=== PATIENT | female | born 1960 | race Caucasian/White ===

== ENCOUNTER → 2016-07-28 | Outpatient (REF) | payer OTHER | LOC: M LAB REF 17:09 | PROVIDERS: ATTEND Internal Medicine | DX: R19.7 Diarrhea, unspecified (principal) ==

== ENCOUNTER 2016-11-20 12:32 | Outpatient (CLI) | payer BC, OTHER ==
[~2016-11-20] VITALS: Ht 170.2 cm; Wt 95.3 kg
[~2016-11-20 12:32] MED LIST: BUPR1TAB53 PO; JUNETAB PO; MONT10TA2 PO; OMEP20CA3 PO; VALS1TAB47 PO
[2016-11-20] MEDS ORDERED: NS 1,000 ML IV ONE (12:45)
[2016-11-20] MEDS ORDERED: PROPOFOL 200 MG/20 ML VIAL As Ordered ONE ×2 (13:21→13:28)
--- NOTE | 2016-11-20 13:41 | ROOR ---
Patient Name: Taras Griffiths Procedure Date: 11/20/2016 1:11 PM Date of : 1960 Age: 56 Room: [facility] Gender: Female Note Status: Finalized Procedure: Total Colonoscopy to Cecum Indications: Screening for colorectal malignant neoplasm, Last colonoscopy: 2006 Providers: Hang Caceres MD Referring MD: Laura Cummins DO Requesting Provider: Medicines: Monitored Anesthesia Care Complications: No immediate complications. Procedure: Pre-Anesthesia Assessment: - The heart rate, respiratory rate, oxygen saturations, blood pressure, adequacy of pulmonary ventilation, and response to care were monitored throughout the procedure. The Colonoscope was introduced through the anus and advanced to the cecum, identified by appendiceal orifice and ileocecal valve. The colonoscopy was performed without difficulty. The patient tolerated the procedure well. The quality of the bowel preparation was good. Findings: The perianal and digital rectal examinations were normal. Non-bleeding internal hemorrhoids were found during retroflexion. The hemorrhoids were small and Grade I (internal hemorrhoids that do not prolapse). No other significant abnormalities were identified in a careful examination of the remainder of the colon. The exam was otherwise without abnormality on direct and retroflexion views. Impression: - Non-bleeding internal hemorrhoids. - The examination was otherwise normal on direct and retroflexion views. - No specimens collected. - The exam was otherwise normal to the cecum. Recommendation: - Patient has a contact number available for emergencies. The signs and symptoms of potential delayed complications were discussed with the patient. Return to normal activities tomorrow. Written discharge instructions were provided to the patient. - Discharge patient to home. - Continue present medications. - Repeat colonoscopy in 10 years for screening purposes. - Return to referring physician. - The findings and recommendations were discussed with the patient's family. Hang Caceres MD Hang Caceres MD 11/20/2016 1:41:07 PM This report has been signed electronically. Number of Addenda: 0 Note Initiated On: 11/20/2016 1:11 PM Estimated Blood Loss: Estimated blood loss: none.
[2016-11-20 13:59] VITALS: BP 135/92
== END 2016-11-20 14:07 | disposition home or self-care (01) ==
LOC: M OPP 12:32
PROVIDERS: ATTEND Internal Medicine Gastroenterology
DX: R19.5 Other fecal abnormalities (principal); K62.5 Hemorrhage of anus and rectum; R10.9 Unspecified abdominal pain; K64.0 First degree hemorrhoids; I10 Essential (primary) hypertension; R12 Heartburn; M19.90 Unspecified osteoarthritis, unspecified site; F41.9 Anxiety disorder, unspecified; F32.9 Major depressive disorder, single episode, unspecified; R06.83 Snoring; Z98.84 Bariatric surgery status; Z88.0 Allergy status to penicillin; Z79.899 Other long term (current) drug therapy

== ENCOUNTER → 2018-11-04 | Outpatient (REF) | payer OTHER ==
[~2018-11-04] MED LIST changes: +OMEP1CAP73 PO; -OMEP20CA3 PO; -VALS1TAB47 PO; +VALS1TAB67 PO
== END ==
LOC: M LAB REF 19:00
PROVIDERS: ATTEND Internal Medicine
DX: Z98.84 Bariatric surgery status (principal)

== ENCOUNTER → 2019-07-20 | Outpatient (CLI) | payer OTHER ==
[~2019-07-20] MED LIST changes: -MONT10TA2 PO; +MONT10TA4 PO
== END ==
LOC: M LABSMTC 09:24
PROVIDERS: ATTEND Physician Assistant
DX: Z03.818 Encounter for observation for suspected exposure to other biological agents ruled out (principal)

== ENCOUNTER → 2020-05-27 | Outpatient (REF) | payer OTHER ==
[~2020-05-27] MED LIST changes: +MONT10TA10 PO; -MONT10TA4 PO
== END ==
LOC: M LAB REF 16:22
PROVIDERS: ATTEND Internal Medicine
DX: G60.9 Hereditary and idiopathic neuropathy, unspecified (principal)

== ENCOUNTER → 2022-06-12 | Outpatient (REF) | payer OTHER ==
[~2022-06-12] MED LIST changes: -MONT10TA10 PO; +MONT10TA97 PO
[2022-06-13 14:26] LABS: VITAMIN B12 LEVEL 748 PG/ML (211-911)
[2022-06-13 14:27] LABS: IRON (FE) 136 UG/DL (50-170); PERCENT SATURATION 38.4 % (13.2-45.0); TOTAL IRON BINDING CAPACITY 354 UG/DL (250-425)
[2022-06-13 14:28] LABS: C REACTIVE PROTEIN QUANTITATIV < 0.40 MG/DL (<1.0)
[2022-06-13 14:30] LABS: FERRITIN 12.7 NG/ML (7.3-270.7)
[2022-06-13 14:32] LABS: CARCINOEMBRYONIC ANTIGEN < 2.0 NG/ML (<2.5)
[2022-06-13 14:41] LABS: HEPATITIS B SURFACE ANTIGEN NEGATIVE (NEGATIVE)
[2022-06-13 15:00] LABS: HEPATITIS B CORE ANTIBODY IGM NEGATIVE (NEGATIVE)
== END ==
LOC: M LAB REF 12:48
PROVIDERS: ATTEND Internal Medicine
DX: R10.9 Unspecified abdominal pain (principal); F06.70 Mild neurocognitive disorder due to known physiological condition without behavioral disturbance; G20 Parkinson's disease; E74.01 von Gierke disease

== ENCOUNTER → 2022-06-26 | Outpatient (CLI) | payer BC, OTHER ==
[~2022-06-26] MED LIST changes: +E-Z-GAS II EFFERVESCENT PACKET (SODIUM BICARB./CITRIC ACID/SIMETHICONE) As Ordered ONE; +E-Z-HD 98% w/w 340GM SUSP BTL As Ordered ONE; +E-Z-PAQUE 96% w/w SUSP 176GM BTL As Ordered ONE
== END ==
LOC: M RAD 08:09
PROVIDERS: ATTEND Internal Medicine
DX: R11.0 Nausea (principal); R68.81 Early satiety

== ENCOUNTER → 2022-07-04 | Outpatient (CLI) | payer BC, OTHER ==
[~2022-07-04] MED LIST changes: -E-Z-GAS II EFFERVESCENT PACKET (SODIUM BICARB./CITRIC ACID/SIMETHICONE) As Ordered ONE; -E-Z-HD 98% w/w 340GM SUSP BTL As Ordered ONE; -E-Z-PAQUE 96% w/w SUSP 176GM BTL As Ordered ONE
== END ==
LOC: M RAD 11:29
PROVIDERS: ATTEND Internal Medicine
DX: R68.81 Early satiety (principal)

== ENCOUNTER → 2022-07-10 | Outpatient (CLI) | payer BC, OTHER | LOC: M WHC 08:39 | PROVIDERS: ATTEND Internal Medicine | DX: R74.01 Elevation of levels of liver transaminase levels (principal) ==

== ENCOUNTER 2023-03-05 09:54 | Day surgery (SDC) | payer BC, OTHER ==
[~2023-03-05] VITALS: Ht 170.2 cm; Wt 95.6 kg
[~2023-03-05 09:54] MED LIST changes: +ALPR0.5T3 PO; +CARB25TA18 PO; +COLA100C5 PO; +FISH1CAP26 PO; +GABA-1171 PO; +IRBE150T7 PO; +LEXA1TAB PO; +LEXA1TAB2 PO; +NS 1,000 ML IV ONE; +OMEP40CA4 PO; +PROBCAP14 PO; +SUMA100T2 PO; +VITMTA PO
[2023-03-05] MEDS ORDERED: LIDOCAINE 2% 100MG/5ML SDV (FOR ANES.) As Ordered ONE ×2 (11:22→11:24)
[2023-03-05] MEDS ORDERED: propofoL 500 MG/50 ML VIAL As Ordered ONE (11:22)
[2023-03-05] MEDS ORDERED: fentaNYL 100 MCG/2 ML INJECTION As Ordered ONE (11:56)
[2023-03-05] MEDS ORDERED: ONDANSETRON 4MG 2ML VIAL As Ordered ONE (12:13)
[2023-03-05 13:10] VITALS: BP 109/70; O2SAT 99
== END 2023-03-05 13:10 | disposition home or self-care (01) ==
LOC: M OPP 09:54
PROVIDERS: ATTEND Internal Medicine Gastroenterology
DX: Z12.11 Encounter for screening for malignant neoplasm of colon (principal); K64.0 First degree hemorrhoids; K31.A0 Gastric intestinal metaplasia, unspecified; R12 Heartburn; Z98.84 Bariatric surgery status; Z88.0 Allergy status to penicillin
CPT/HCPCS: 43239; 45378; 88305; J2405; J3010